=== PATIENT | female | born 2000 | race Two or more races ===

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

== ENCOUNTER 2024-10-25 13:27 | Emergency (ER) | payer OTHER ==
[~2024-10-25] VITALS: Ht 152.4 cm; Wt 53.5 kg
[2024-10-25] MEDS ORDERED: NAPROXEN375 MG PO (17:17)
== END 2024-10-25 19:54 | disposition home or self-care (01) ==
LOC: ER 13:29
DX: S93.401A Sprain of unspecified ligament of right ankle, initial encounter (principal); V49.9XXA Car occupant (driver) (passenger) injured in unspecified traffic accident, initial encounter; Y93.89 Activity, other specified; Y92.413 State road as the place of occurrence of the external cause; Y99.9 Unspecified external cause status; Z88.0 Allergy status to penicillin